=== PATIENT | male | born 1980 | race Caucasian/White ===

== ENCOUNTER 2024-07-16 20:56 | Emergency (ER) | payer OTHER ==
[~2024-07-16] VITALS: Ht 165.1 cm; Wt 73.0 kg
[2024-07-16 21:07] VITALS: TEMP 98.2; O2SAT 99
[2024-07-16] MEDS ORDERED: KETOROLAC 15MG/ML VIAL IM ONE (22:00)
[2024-07-16] MEDS: ACETAMINOPHEN 325MG TABLET PO ONE (23:20)
[2024-07-16] MEDS ORDERED: NAPR-1176 MT (23:28)
[2024-07-16 23:54] VITALS: BP 111/76; PULSE 54; RESP 16; O2SAT 99
[2024-07-16] MEDS: KETOROLAC 15MG/ML VIAL IM NR (23:54)
== END 2024-07-16 23:57 | disposition home or self-care (01) ==
LOC: ER 20:56
DX: S92.251A Displaced fracture of navicular [scaphoid] of right foot, initial encounter for closed fracture (principal); X58.XXXA Exposure to other specified factors, initial encounter; Y93.89 Activity, other specified; Y92.89 Other specified places as the place of occurrence of the external cause; Y99.8 Other external cause status
CPT/HCPCS: 29125; 73110; 99283; J1885

== ENCOUNTER 2024-12-29 11:26 | Emergency (ER) | payer OTHER ==
[~2024-12-29] VITALS: Ht 172.7 cm; Wt 72.6 kg
[~2024-12-29 11:26] MED LIST: NAPR-1176 MT
[2024-12-29 11:44] VITALS: O2SAT 98
[2024-12-29] MEDS: TETANUS, DIPHTHERIA, PERTUSSIS VAC/PF 0.5ML (>10YR OLD) IM ONE (12:15)
[2024-12-29] MEDS: FLUORESCEIN SODIUM 1MG/STRIP LEFTEYE ONE (12:27)
[2024-12-29] MEDS: ACETAMINOPHEN 325MG TABLET PO ONE (12:29)
[2024-12-29] MEDS ORDERED: AMOX1TAB16 MT (13:32)
[2024-12-29] MEDS ORDERED: IBUP-2029 MT (13:32)
[2024-12-29 13:45] VITALS: BP 135/78; PULSE 79; RESP 16; TEMP 36.9; O2SAT 98
== END 2024-12-29 13:46 | disposition home or self-care (01) ==
LOC: ER 11:26
DX: S02.832A Fracture of medial orbital wall, left side, initial encounter for closed fracture (principal); S09.8XXA Other specified injuries of head, initial encounter; Z23 Encounter for immunization; Z79.1 Long term (current) use of non-steroidal anti-inflammatories (NSAID); Y04.0XXA Assault by unarmed brawl or fight, initial encounter; Y93.66 Activity, soccer; Y92.89 Other specified places as the place of occurrence of the external cause; Y99.8 Other external cause status
CPT/HCPCS: 70486; 90471; 90715; 99285